=== PATIENT | male | born 1980 | race Caucasian/White ===

== ENCOUNTER 2021-04-02 21:36 | Emergency (ER) | payer BC ==
[~2021-04-02] VITALS: Ht 172.7 cm; Wt 75.0 kg
--- NOTE | 2021-04-02 23:03 | PHYS DOC ---
Past History Past Medical History: Arthritis, Hypertension, Other Additional Past Medical Histor: neck pain Past Surgical History: Other Additional Past Surgical Histo: hernia repair Alcohol Use: None General Adult EDM: Chief Complaint: GROIN PAIN HPI: HPI: ".. I know I got a hernia on the Rt... but the Lt. side that hurts ... that been repaired years ago.. it the side that hurts the most... " Patient is a 40 year old male who presents with above hx and complaints bilateral inguinal hernias. Patient reports that he has previous inguinal hernia on the left was repaired a number of years ago. But area has become more tender in the last few days. Patient states approximately 2 months ago developed a hernia on the right after lifting. No history of travel. No history of specific ill contacts. Normally follows with Only when he needs surgery. Patient does have a history of hypertension patient does smoke tobacco. Last ate at approximately 2000 hours tonight. Had a normal stool today. Does have significant scarring on the left inguinal area that is somew hat tender and obvious direct hernia on right. Review of Systems: Review of Systems: Constitutional: Denies fever or chills Eyes: Denies change in visual acuity HENT: Denies nasal congestion or sore throat Respiratory: Denies cough or shortness of breath Cardiovascular: Denies chest pain or edema GI: Complains of bilateral lower pelvic abdominal pain at site of hernias. Denies, nausea, vomiting, bloody stools or diarrhea : Denies dysuria Musculoskeletal: Denies back pain or joint pain Integument: Denies rash Neurologic: Denies headache, focal weakness or sensory changes Endocrine: Denies polyuria or polydipsia Lymphatic: Denies swollen glands Psychiatric: Denies depression or anxiety Family History: Family History: Noncontributory to presentation. Current Medications: Current Meds: See nursing for home meds Allergies: Allergies: Allergies Coded Allergies Type Severity Reaction Last Updated Verified No Known Drug Allergies 04/02/21 No Physical Exam: PE: Constitutional: Moderate acute distress, non-toxic appearance. [] HENT: Normocephalic, atraumatic, bilateral external ears normal, oropharynx moist, no oral exudates, nose normal. Poor dentition Eyes: PERRLA, EOMI, conjunctiva normal, no discharge. [] Neck: Normal range of motion, no tenderness, supple, no stridor. [] Cardiovascular:Heart rate regular rhythm, no murmur [] Lungs & Thorax: Bilateral breath sounds equal apex with scattered wheezes on auscultation [] Abdomen: Bowel sounds normal, soft, no tenderness, no masses, no pulsatile m asses. Bilateral inguinal/groin hernias. Has large scar left lower inguinal area. Patient declined rectal exam at this time. Skin: Warm, dry, no erythema, no rash. [] Back: No tenderness, no CVA tenderness. [] Extremities: No tenderness, no cyanosis, no clubbing, ROM intact, no edema. No psoas sign. Neurologic: Alert and oriented X 3, normal motor function, normal sensory function, no focal deficits noted. [] Psychologic: Affect anxious, judgement normal, mood normal. [] Current Patient Data: Vital Signs: Vital Signs Date Time Temp Pulse Resp B/P (MAP) Pulse Ox O2 Delivery O2 Flow Rate FiO2 04/02/21 21:50 98.0 88 16 153/109 (124) 98 Room Air EKG: EKG: [] Radiology/Procedures: Radiology/Procedures: [][place] [address] IMAGING REPORT Signed PATIENT: NIKUNJ VYAS ACCOUNT: [id number] : 1980 LOCATION: ER AGE: 40 SEX: M EXAM STATUS: REG ER ORD. PHYSICIAN: SHELBY MENDIETA MD REASON: abdomen and bilateral groin pain > on Lt. PROCEDURE: ACUTE ABDOMEN SERIES Acute Abdominal Series: Technique: PA view of the chest and supine and upright views of the abdomen were obtained. History: Pain. Comparison: None. Findings: The heart and pulmonary vessels appear normal. Reticular opacities of lungs could be chronic pulmonary fibrosis. There is air and stool scattered throughout the colon. There is a paucity of small bowel gas. There is no free air. IMPRESSION: Mild constipation. Electronically signed by: Rosanne Sandoval III, MD (04/02/2021 11:59 PM) [facility] DICTATED AND SIGNED BY: ROSANNE SANDOVAL III, MD DATE: 04/02/21 1848 CC: SHELBY MENDIETA MD; PCP,NO ~MTH0 [address] [address] IMAGING REPORT Signed PATIENT: NIKUNJ VYAS ACCOUNT: [id number] : 1980 LOCATION: ER AGE: 40 SEX: M EXAM STATUS: REG ER ORD. PHYSICIAN: SHELBY MENDIETA MD REASON: abdomen and bilateral groin pain > on Lt. PROCEDURE: CT ABD PELV W/ORAL&IV CONTRAST CT OF THE ABDOMEN AND PELVIS WITH IV CONTRAST. History: Abdominal and bilateral groin pain Comparison:None. Procedure: Contiguous axial images of the abdomen and pelvis were performed after the administration of 75 cc of Omni 300 IV contrast. Oral contrast: Yes. Findings: The gallbladder appears normal. The appendix is normal. The prostate is not significantly enlarged. There is a fat-containing inguinal canal hernia on the right. Liver: Unremarkable Spleen: Unremarkable Pancreas: Unremarkable Adrenal Glands: Unremarkable Kidneys: Unremarkable There is no mass or lymphadenopathy. There is no free air. There is no free fluid. The urinary bladder appears normal. Impression: No acute findings. End Impression PQRS Compliance Statement: One or more of the following individualized dose reduction techniques were utilized for this examination: 1. Automated exposure control 2. Adjustment of the mA and/or kV according to patient size 3. Use of iterative reconstruction technique Electronically signed by: Rosanne Sandoval III, MD (04/03/2021 12:57 AM) [facility] DICTATED AND SIGNED BY: ROSANNE SANDOVAL III, MD DATE: 04/03/21 005 CC: SHELBY MENDIETA MD; PCP,NO ~MTH0 0 Heart Score: C/O Chest Pain: No HEART Score for Chest Pain: HEART Score for Chest Pain Response (Comments) Value History Slighlty/Non-Suspicious 0 Age >45 - < 65 1 Risk Factors 1 or 2 Risk Factors 1 Total 2 Risk Factors: Risk Factors: DM, Current or recent (<one month) smoker, HTN, HLP, family history of CAD, obesity. Risk Scores: Score 0 - 3: 2.5% MACE over next 6 weeks - Discharge Home Score 4 - 6: 20.3% MACE over next 6 weeks - Admit for Clinical Observation Score 7 - 10: 72.7% MACE over next 6 weeks - Early Invasive Strategies Course & Med Decision Making: Course & Med Decision Making Pertinent Labs and Imaging studies reviewed. (See chart for details) Patient follow-up primary care. Patient encouraged to stop smoking. Avoid illicit drug use. Patient may increase fruit in diet. Patient consider taking milk of mag when he becomes constipated. Recommend clear fluid diet until pain resolved in the next 48 hours. Consider reexam if no improvement. Follow-up CT results with primary care. Consider surgical consult if continued inguinal or left quadrant pain. Patient return if any concerns. Impression: 1. Fat-containing inguinal hernia on right. 2. Left inguinal hernia status post repair 3. Tobacco use 4. Anemia 12.5 5. UDS + Methamphetamine [] Dragon Disclaimer: Dragon Disclaimer: This electronic medical record was generated, in whole or in part, using a voice recognition dictation system. Departure Departure: Referrals: PCP,NO (PCP) [place] Disclaimer This chart was dictated in whole or in part using Voice Recognition software in a busy, high-work load, and often noisy Emergency Department environment. It may contain unintended and wholly unrecognized errors or omissions. SHELBY MENDIETA MD April 02, 2021 23:03
[2021-04-02] MEDS ORDERED: IOHEXOL 300 MG/ML 75 ML VIAL. IV ONE (23:30)
[2021-04-02] MEDS ORDERED: CONTRAST GIVEN. MC PRN (23:30)
[2021-04-02] MEDS ORDERED: FAMOTIDINE 20 MG/2 ML VIAL IVP ONE (23:30)
[2021-04-02] MEDS ORDERED: IOHEXOL 240 MG/ML 50ML VIAL. PO ONE (23:30)
[2021-04-02] MEDS ORDERED: KETOROLAC 30 MG/ML VIAL. IVP ONE (23:30)
[2021-04-02] MEDS ORDERED: ONDANSETRON PF 4 MG/2 ML VIAL. IVP ONE (23:30)
[2021-04-02] MEDS ORDERED: IV RINGERS SOLUTION,LACTATED 1,000 ML IV SCH (23:30)
--- NOTE | 2021-04-03 00:01 | RAD ---
Acute Abdominal Series: Technique: PA view of the chest and supine and upright views of the abdomen were obtained. History: Pain. Comparison: None. Findings: The heart and pulmonary vessels appear normal. Reticular opacities of lungs could be chronic pulmonar y fibrosis. There is air and stool scattered throughout the colon. There is a paucity of small bowel gas. There is no free air. IMPRESSION: Mild constipation. Electronically signed by: Iván Anderson III, MD (04/02/2021 11:59 PM) [facility]
--- NOTE | 2021-04-03 00:59 | RAD ---
CT OF THE ABDOMEN AND PELVIS WITH IV CONTRAST. History: Abdominal and bilateral groin pain Comparison:None. Procedure: Contiguous axial images of the abdomen and pelvis were performed after the administration of 75 cc o f Omni 300 IV contrast. Oral contrast: Yes. Findings: The gallbladder appears normal. The appendix is normal. The prostate is not significantly enlarged. There is a fat-containing inguinal canal hernia on the right. Liver: Unremarkable Spleen: Unremarkable Pancreas: Unremarkable Adrenal Glands: Unremarkable Kidneys: Unremarkable There is no mass or lymphadenopathy. There is no free air. There is no free fluid. The urinary bladder appears normal. Impression: No acute findings. End Impression PQRS Compliance Statement: One or more of the following individualized dose reduction techniques were utilized for this examinat ion: 1. Automated exposure control 2. Adjustment of the mA and/or kV according to patient size 3. Use of iterative reconstruction technique Electronically signed by: Iván Anderson III, MD (04/03/2021 12:57 AM) [facility]
[2021-04-03 01:19] LABS: BASO % 0 % (0-3); EOS # 0.3 x10^3/uL (0.0-0.7); EOS % 3 % (0-3); HEMATOCRIT 36.9 % (39.0-53.0); HEMOGLOBIN 12.5 g/dL (13.0-17.5); LYMPH # 3.2 x10^3/uL (1.0-4.8); LYMPH % 37 % (24-48); MEAN CORPUSCULAR HEMOGLOBIN 29 pg (25-35); MEAN CORPUSCULAR HGB CONC 34 g/dL (31-37); MEAN CORPUSCULAR VOLUME 87 fL (79-100); MONO # 1.1 x10^3/uL (0.0-1.1); MONO % 12 % (0-9); NEUT # 4.2 x10^3uL (1.8-7.7); NEUT % 48 % (31-73); PLATELET COUNT 308 x10^3/uL (140-400); RED BLOOD COUNT 4.26 x10^6/uL (4.30-5.70); RED CELL DISTRIBUTION WIDTH 13.6 % (11.5-14.5); WHITE BLOOD COUNT 8.8 x10^3/uL (4.0-11.0)
[2021-04-03 01:48] LABS: BARBITURATES NEG (NEG); BENZODIAZEPINES NEG (NEG); CANNABINOIDS NEG (NEG); COCAINE NEG (NEG); METHADONE NEG (NEG); OPIATES NEG (NEG); PHENCYCLIDINE NEG (NEG)
[2021-04-03 01:55] LABS: AMPHETAMINE/METHAMPHETAMINE POS (NEG)
[2021-04-03 02:10] LABS: CLARITY,URINE CLEAR; COLOR,URINE YELLOW; GLUCOSE,URINE NEG (NEG)
[2021-04-03 02:11] LABS: BILIRUBIN,URINE NEG (NEG); NITRITE,URINE NEG (NEG); UROBILINOGEN,URINE 0.2 mg/dL (0.2 mg/dL)
[2021-04-03 02:12] LABS: BACTERIA,URINE 0 /HPF (0-FEW); RBC,URINE 0 /HPF (0-2); SQUAMOUS EPITHELIAL CELL,UR FEW /LPF; WBC,URINE 0 /HPF (0-4)
[2021-04-03 02:26] VITALS: BP 156/86
--- NOTE | 2021-04-03 06:44 | EKG ---
[address] [address] Test Date: 2021-04-02 Test Time: 23:16:46 Pat Name: NIKUNJ VYAS Department: Room: Gender: M Manager Facility: : [id number] Requested By: SHELBY MENDIETA Order Number: [id number] Reading MD: Measurements Intervals Blum Rate: 74 P: 49 MT: 136 QRS: 67 QRSD: 96 T: 38 QT: 368 QTc: 409 Interpretive Statements SINUS RHYTHM NORMAL ECG RI6.02 No previous ECG available for comparison
== END 2021-04-03 02:29 | disposition home or self-care (01) ==
LOC: ER 21:36
DX: K40.90 Unilateral inguinal hernia, without obstruction or gangrene, not specified as recurrent (principal); D64.9 Anemia, unspecified; F15.10 Other stimulant abuse, uncomplicated; M19.90 Unspecified osteoarthritis, unspecified site; I10 Essential (primary) hypertension; Z72.0 Tobacco use
CPT/HCPCS: 36415; 74022; 74177; 80048; 80076; 80307; 81001; 85025; 93005; 96361; 96374; 96375; 99285; J1885; J2405; J3490; J7120; Q9966; Q9967

== ENCOUNTER 2021-04-23 06:39 | Emergency (ER) | payer BC ==
[~2021-04-23] VITALS: Ht 172.7 cm; Wt 73.0 kg
[2021-04-23 06:44] VITALS: BP 145/100
[2021-04-23] MEDS ORDERED: AMOX500T PO (07:20)
[2021-04-23] MEDS ORDERED: PRED50TA PO (07:20)
--- NOTE | 2021-04-23 07:21 | PHYS DOC ---
Past History Past Medical History: Arthritis, Hypertension, Other Additional Past Medical Histor: neck pain Past Surgical History: Other Additional Past Surgical Histo: hernia repair Alcohol Use: None Adult General Chief Complaint Chief Complaint: SORE THROAT HPI HPI Patient is a 40-year-old female who presents to the emergency room complaining of sore throat. Patient states that he had a little bit of irritation in the back of his throat last night when he went to bed. He then woke up this morning with significant irritation and soreness. He states it feels weird to swallow. He is able to swallow, talk, breathe without difficulty. He has not been around anybody ill. Does not believe that he has had any kind of fever. He denies any cough, shortness of breath, chest pain, abdominal pain, nausea, vomiting. He has not had any trauma to the back of the throat Review of Systems Review of Systems Complete ROS is negative unless otherwise documented in HPI Allergies Allergies Allergies Coded Allergies Type Severity Reaction Last Updated Verified No Known Drug Allergies 04/02/21 No Physical Exam Physical Exam See Above Constitutional: Well developed, well nourished, no acute distress, non-toxic appearance. [] HENT: Normocephalic, atraumatic, bilateral external ears normal, oropharynx moist, mild swelling of bilateral tonsils with erythema, swelling of uvula Eyes: PERRLA, EOMI, conjunctiva normal, no discharge. [] Neck: Normal range of motion, no tenderness, supple, no stridor. [] Cardiovascular:Heart rate regular rhythm, no murmur [] Lungs & Thorax: Bilateral breath sounds clear to auscultation [] Abdomen: Bowel sounds normal, soft, no tenderness, no masses, no pulsatile masses. [] Skin: Warm, dry, no erythema, no rash. [] Back: No tenderness, no CVA tenderness. [] Extremities: No tenderness, no cyanosis, no clubbing, ROM intact, no edema. [] Neurologic: Alert and oriented X 3, normal motor function, normal sensory function, no focal deficits noted. [] Psychologic: Affect normal, judgement normal, mood normal. [] Current Patient Data Vital Signs Vital Signs Date Time Temp Pulse Resp B/P (MAP) Pulse Ox O2 Delivery O2 Flow Rate FiO2 04/23/21 06:44 98.1 74 16 145/100 (115) 99 Room Air EKG EKG [] Radiology/Procedures Radiology/Procedures [] Heart Score C/O Chest Pain: N/A Risk Factors: Risk Factors: DM, Current or recent (<one month) smoker, HTN, HLP, family history of CAD, obesity. Risk Scores: Risk Factors: DM, Current or recent (<one month) smoker, HTN, HLP, family history of CAD, obesity. Course & Med Decision Making Course & Med Decision Making Pertinent Labs and Imaging studies reviewed. (See chart for details) Patient is a 40-year-old male who presents to the emergency room complaining of sore throat. Patient has a swollen uvula and some bilateral erythema to the tonsils. We will start him on steroids and amoxicillin. Patient does not have any difficulty with swallowing, speech, breathing. Does not have any signs of crepitus. He does not have any signs of Damien's. Patient's test results and vitals while in the ED were fully reviewed and discussed with the patient. Patient is stable and at this time does not need admission to the hospital. We have discussed strict return precautions and the importance of following up with their Primary Care Physician. Patient stated understanding and was given an opportunity to ask any questions. Patient is in agreement with plan. Dragon Disclaimer Dragon Disclaimer This electronic medical record was generated, in whole or in part, using a voice recognition dictation system. Departure Departure: Impression: Primary Impression: Swollen uvula Additional Impression: Acute bacterial pharyngitis Disposition: HOME / SELF CARE / HOMELESS Condition: STABLE Referrals: PCP,NO (PCP) Patient Instructions: Uvulitis, Viral and Bacterial Pharyngitis Scripts Amoxicillin (AMOXICILLIN) 500 Mg Tablet 1 TAB PO BID for infx for 7 Days, #14 TAB Prov: GOPI BRITT MD 04/23/21 Prednisone (PREDNISONE) 50 Mg Tablet 1 TAB PO DAILY for inflammation, #5 TAB You received this medication in the emergency room today. You will starting your next dose tomorrow. Prov: GOPI BRITT MD 04/23/21 Problem Qualifiers GOPI BRITT MD Apr 23, 2021 07:21
[2021-04-23] MEDS ORDERED: DEXAMETHASONE SOD PHOS 10 MG/ML VIAL. PO ONE (07:30)
== END 2021-04-23 07:34 | disposition home or self-care (01) ==
LOC: ER 06:39
DX: J02.8 Acute pharyngitis due to other specified organisms (principal); K13.79 Other lesions of oral mucosa; M19.90 Unspecified osteoarthritis, unspecified site; I10 Essential (primary) hypertension
CPT/HCPCS: 99283; J1100